=== PATIENT | female | born 1975 | race Caucasian/White ===

== ENCOUNTER 2016-04-13 11:27 | Emergency (ER) | payer OTHER ==
[~2016-04-13] VITALS: Ht 162.6 cm; Wt 65.8 kg
[~2016-04-13 11:27] MED LIST: ALPR1TAB2 PO; BREXPIPRAZOLE; CIPR7.5D2 BC; DICY20TA10 PO; DULO20CA18 PO; LORA-405 PO; LORA0.5T PO; MULT-974 PO; ONDA8TAB13 PO; PRM25T PO; RABE20TA PO; VARE1TAB22 PO; VENL150C PO; VENL37.56 PO; VNL37.5T PO; VNL75CCR PO
[2016-04-13] MEDS ORDERED: CLON0.1T (11:40)
--- NOTE | 2016-04-13 11:42 | ED Cough/URI ---
General Chief Complaint: Cough/Cold/Flu Symptoms Stated Complaint: FEVER COUGH/CHEST CONGESTION SORE THROAT Source: patient Exam Limitations: no limitations History of Present Illness Time seen by provider: 11:41 Initial Comments 4 day history of nonproductive cough, chest congestion, sore throat, rhinorrhea , earache and headache. Chills but no measured fever. Nausea and vomiting. Timing/Duration: getting worse Severity/Quality: dry cough Associated Symptoms: cough, fever/chills, nasal congestion, nasal drainage Allergies and Home Medications Allergies Coded Allergies: No Known Drug Allergies (Unverified , 07/30/09) Home Medications Clonidine HCl 0.1 Mg Tablet #90 (Reported) Constitutional: see HPI chills malaise weakness EENTM: see HPI Respiratory: see HPI cough Cardiovascular: no symptoms reported Genitourinary: no symptoms reported Musculoskeletal: no symptoms reported Skin: no symptoms reported Psychiatric/Neurological: No Symptoms Reported Hematologic/Lymphatic: No Symptoms Reported Past Tnmpood-Bcbbul-Rqcpai Hx Patient Social History Former Smoker/When Quit: Sep 23, 2011 Recent Foreign Travel: No Contact w/Someone Who Travel: No Recent Hopitalizations: Yes (SEVERAL ER VISITS) Immunizations Up To Date Tetanus Booster (TDap): Unknown PED Vaccines UTD: Yes Surgeries HX Surgeries: Yes (ORAL) Surgeries: Section Respiratory Hx Respiratory Disorders: No Cardiovascular Hx Cardiac Disorders: No Neurological Hx Neurological Disorders: No Reproductive System Hx Reproductive Disorders: No Sexually Transmitted Disease: No Female Reproductive Disorders: Denies Genitourinary Hx Genitourinary Disorders: No Gastrointestinal Hx Gastrointestinal Disorders: Yes Gastrointestinal Disorders: Irritable Bowel Musculoskeletal Hx Musculoskeletal Disorders: No Endocrine Hx Endocrine Disorders: No HEENT HX ENT Disorders: No (wears glasses or contacts) Hearing Impairment: Denies Cancer Hx Cancer: No Psychosocial Hx Psychiatric Problems: Yes Behavioral Health Disorders: Anxiety, Depression Integumentary HX Skin/Integumentary Disorder: No Blood Transfusions Hx Blood Disorders: No Family Medical History Significant Family History: Heart Disease, COPD Physical Exam Vital Signs Vital Sign - Last 12Hours 04/13/16 11:32 Temp 97.8 Pulse 82 Resp 18 B/P 128/83 Pulse Ox 99 O2 Delivery Room Air Capillary Refill : General Appearance: WD/WN no apparent distress Eyes: Bilateral Eye EOMI, Bilateral Eye Normal Inspection, Bilateral Eye PERRL HEENT: PERRL/EOMI normal ENT inspection TMs normal pharyngeal erythema Neck: non-tender full range of motionNo lymphadenopathy (R), No lymphadenopathy (L) Respiratory: normal breath sounds no respiratory distress no accessory muscle use Cardiovascular: regular rate, rhythm no murmur Gastrointestinal: normal bowel sounds non tender soft Neurologic/Psychiatric: alert normal mood/affect oriented x 3 Skin: normal color warm/dry Progress/Results/Core Measures Results/Orders Micro Results Microbiology 04/13/16 Influenza Types A,B Antigen (KARSTEN) - Final, Complete My Orders Orders-ABUNDIO RAPHAEL APRN Chest Pa/Lat (2 View) (04/13/16 11:40) Influenza A And B Antigens (04/13/16 11:40) Vital Signs/I&O Vital Sign - Last 12Hours 04/13/16 11:32 Temp 97.8 Pulse 82 Resp 18 B/P 128/83 Pulse Ox 99 O2 Delivery Room Air Departure Impression Impression: Primary Impression: Viral syndrome Disposition: 01 HOME, SELF-CARE Condition: Stable Departure-Patient Inst. Decision time for Depature: 12:05 [address]errals: [facility] (PCP/Family) Primary Care Physician Patient Instructions: VIRAL SYNDROME Add. Discharge Instructions: 1. Tylenol and Motrin for pain 2. Return to ER for any worsening 3. Follow-up with your doctor next week for any concerns All discharge instructions reviewed with patient and/or family. Voiced understanding. Scripts D-Methorphan Hb/P-Epd HCl/Bpm (Bromfed Dm Cough Syrup)118 Ml Syrup5 Ml PO Q6H PRN CONGESTION #120 ML Prov:ABUNDIO RAPHAEL APRN 04/13/16 ABUNDIO RAPHAEL APRN Apr 13, 2016 11:42
[2016-04-13] MEDS ORDERED: D-ME118S33 PO (12:06)
[2016-04-13 12:19] VITALS: BP 128/83
--- NOTE | 2016-04-13 12:31 | Diagnostic Imaging Report ---
INDICATION: Cough and congestion x 4 days. FINDINGS: Two views of the chest demonstrate the lungs to be clear. The heart, mediastinum, pulmonary vascularity, and visualized bony thorax are normal. IMPRESSION: Negative chest. Dictated by: Dictated on workstation # [id number]
== END 2016-04-13 12:19 | disposition home or self-care (01) ==
LOC: EDUNIT# 11:27 → ER 11:29
DX: B34.9 Viral infection, unspecified (principal); R50.9 Fever, unspecified
CPT/HCPCS: 71020; 87804; 99282

== ENCOUNTER 2018-05-18 11:35 | Emergency (ER) | payer SELFPAY ==
[~2018-05-18] VITALS: Ht 162.6 cm; Wt 56.7 kg
[~2018-05-18 11:35] MED LIST changes: +CLON0.1T; +D-ME118S33 PO
[2018-05-18 11:51] VITALS: BP 162/75
[2018-05-18] MEDS ORDERED: NS IV 1000 ML 1,000 ML IV SCH (12:15)
[2018-05-18] MEDS ORDERED: KETOROLAC 30 MG/ML VIAL IVP ONE (12:15)
[2018-05-18] MEDS ORDERED: PROCHLORPERAZINE 10 MG/2ML INJ (COMPAZINE) IV ONE (12:15)
[2018-05-18] MEDS ORDERED: diphenhydrAMINE 50 MG/ML INJ (BENADRYL) IVP ONE (12:15)
--- NOTE | 2018-05-18 12:16 | ED GI ---
General Chief Complaint: Abdominal/GI Problems Stated Complaint: THROWING UP LIGH HEADED MIGRAINE Nursing Triage Note: pt presents with nausea, vomiting, and a headache x 2 days Sepsis Screen: No Definite Risk Source of Information: Patient Exam Limitations: No Limitations History of Present Illness Date Seen by Provider: May 18, 2018 Time Seen by Provider: 12:14 Initial Comments To ER with nausea vomiting and a left-sided occipital headache for 2 days. She reports chills. The headache is to the left side of her neck, base of her skull. Is worsened by turning head either direction. No diarrhea. No abdominal pain. Timing/Duration: 1-2 Days Severity/Quality: Cramping Radiation: No Radiation Activities at Onset: None Associated Symptoms: Fever/Chills, Nausea/Vomiting Allergies and Home Medications Allergies Coded Allergies: No Known Drug Allergies (Unverified , 07/30/09) Home Medications D-Methorphan Hb/P-Epd HCl/Bpm 118 Ml Syrup, 5 ML PO Q6H PRN for CONGESTION Prescribed by: ABUNDIO RAPHAEL on 04/13/16 1206 Patient Home Medication List Home Medication List Reviewed: Yes Review of Systems Review of Systems Constitutional: see HPI EENTM: No Symptoms Reported Respiratory: No Symptoms Reported Cardiovascular: No Symptoms Reported Gastrointestinal: See HPI, Abdominal Pain, Nausea, Vomiting Genitourinary: No Symptoms Reported Musculoskeletal: no symptoms reported Skin: no symptoms reported Psychiatric/Neurological: No Symptoms Reported Endocrine: No Symptoms Reported Hematologic/Lymphatic: No Symptoms Reported Past Bsaffkh-Dovsxv-Wlxepc Hx Patient Social History Alcohol Use: Denies Use Recreational Drug Use: No Smoking Status: Current Everyday Smoker Type Used: Cigarettes Recent Foreign Travel: No Contact w/Someone Who Travel: No Recent Infectious Disease Expo: No Recent Hopitalizations: No Immunizations Up To Date Tetanus Booster (TDap): Unknown PED Vaccines UTD: Yes Date of Influenza Vaccine: Apr 13, 2016 Seasonal Allergies Seasonal Allergies: No Past Medical History Surgeries: Yes Section Respiratory: No Cardiac: No Neurological: No Reproductive Disorders: No Female Reproductive Disorders: Denies Sexually Transmitted Disease: No Genitourinary: No Gastrointestinal: Yes Irritable Bowel Musculoskeletal: No Endocrine: No HEENT: No Hearing Impairment: Denies Cancer: No Psychosocial: Yes Depression Integumentary: No Family Medical History Heart Disease, COPD Physical Exam Vital Signs Vital Signs - First Documented 05/18/18 11:51 Temp 97.5 Pulse 87 Resp 22 B/P (MAP) 162/75 (104) Pulse Ox 98 O2 Delivery Room Air Capillary Refill : Less Than 3 Seconds Height/Weight/BMI Height: 5'4.00" Weight: 125lbs. 12.8oz. 56.538700jl; 24.03 BMI Method:Stated General Appearance: WD/WN, no apparent distress, other (she is actively vomiting on arrival.) HEENT: PERRL/EOMI, normal ENT inspection Neck: non-tender, full range of motion Respiratory: no respiratory distress, no accessory muscle use Gastrointestinal: normal bowel sounds, non tender, soft Extremities: normal range of motion, non-tender Neurologic/Psychiatric: alert, normal mood/affect, oriented x 3 Skin: normal color, warm/dry Progress/Results/Core Measures Results/Orders Lab Results Laboratory Tests Test 05/18/18 12:07 05/18/18 13:57 Range/Units White Blood Count 13.1 H 4.3-11.0 10^3/uL Red Blood Count 4.73 4.35-5.85 10^6/uL Hemoglobin 14.8 11.5-16.0 G/DL Hematocrit 43 35-52 % Mean Corpuscular Volume 92 80-99 FL Mean Corpuscular Hemoglobin 31 25-34 PG Mean Corpuscular Hemoglobin Concent 34 32-36 G/DL Red Cell Distribution Width 13.6 10.0-14.5 % Platelet Count 212 130-400 10^3/uL Mean Platelet Volume 11.8 H 7.4-10.4 FL Neutrophils (%) (Auto) 70 42-75 % Lymphocytes (%) (Auto) 24 12-44 % Monocytes (%) (Auto) 5 0-12 % Eosinophils (%) (Auto) 1 0-10 % Basophils (%) (Auto) 0 0-10 % Neutrophils # (Auto) 9.2 H 1.8-7.8 X 10^3 Lymphocytes # (Auto) 3.1 1.0-4.0 X 10^3 Monocytes # (Auto) 0.7 0.0-1.0 X 10^3 Eosinophils # (Auto) 0.1 0.0-0.3 10^3/uL Basophils # (Auto) 0.0 0.0-0.1 10^3/uL Sodium Level 139 135-145 MMOL/L Potassium Level 3.5 L 3.6-5.0 MMOL/L Chloride Level 107 98-107 MMOL/L Carbon Dioxide Level 21 21-32 MMOL/L Anion Gap 11 5-14 MMOL/L Blood Urea Nitrogen 7 7-18 MG/DL Creatinine 1.06 0.60-1.30 MG/DL Estimat Glomerular Filtration Rate 56 BUN/Creatinine Ratio 7 Glucose Level 106 H 70-105 MG/DL Calcium Level 9.5 8.5-10.1 MG/DL Corrected Calcium 9.2 8.5-10.1 MG/DL Total Bilirubin 0.5 0.1-1.0 MG/DL Aspartate Amino Transf (AST/SGOT) 14 5-34 U/L Alanine Aminotransferase (ALT/SGPT) 9 0-55 U/L Alkaline Phosphatase 57 40-136 U/L Total Protein 7.6 6.4-8.2 GM/DL Albumin 4.4 3.2-4.5 GM/DL Urine Color YELLOW Urine Clarity CLEAR Urine pH 5 5-9 Urine Specific [place] 1.030 H 1.016-1.022 Urine Protein 2+ H NEGATIVE Urine Glucose (UA) NEGATIVE NEGATIVE Urine Ketones 4+ H NEGATIVE Urine Nitrite NEGATIVE NEGATIVE Urine Bilirubin NEGATIVE NEGATIVE Urine Urobilinogen NORMAL NORMAL MG/DL Urine Leukocyte Esterase 1+ H NEGATIVE Urine RBC (Auto) 5+ H NEGATIVE Urine RBC 0-2 /HPF Urine WBC 0-2 /HPF Urine Squamous Epithelial Cells 25-50 H /HPF Urine Crystals NONE /LPF Urine Bacteria MODERATE H /HPF Urine Casts NONE /LPF Urine Mucus MODERATE H /LPF Urine Culture Indicated NO My Orders Orders - ABUNDIO RAPHAEL APRN Cbc With Automated Diff (05/18/18 12:11) Comprehensive Metabolic Panel (05/18/18 12:11) Ua Culture If Indicated (05/18/18 12:11) Iv Heplock-Insert (Order) (05/18/18 12:11) Ct Head Wo (05/18/18 12:11) Ns Iv 1000 Ml (Sodium Chloride 0.9%) (05/18/18 12:15) Diphenhydramine Injection (Benadryl Inje (05/18/18 12:15) Prochlorperazine Injection (Compazine In (05/18/18 12:15) Ketorolac Injection (Toradol Injection) (05/18/18 12:15) Medications Given in ED Current Medications Medications Dose Ordered Sig/Shelton Route Start Time Stop Time Status Last Admin Dose Admin Diphenhydramine HCl 25 mg ONCE ONCE IVP 05/18/18 12:15 05/18/18 12:16 DC 05/18/18 12:19 25 MG Ketorolac Tromethamine 15 mg ONCE ONCE IVP 05/18/18 12:15 05/18/18 12:16 DC 05/18/18 12:20 15 MG Prochlorperazine Edisylate 5 mg ONCE ONCE IV 05/18/18 12:15 05/18/18 12:16 DC 05/18/18 12:21 5 MG Vital Signs/I&O 05/18/18 11:51 Temp 97.5 Pulse 87 Resp 22 B/P (MAP) 162/75 (104) Pulse Ox 98 O2 Delivery Room Air Blood Pressure Mean: 104 Departure Impression Primary Impression: Nausea & vomiting Qualified Codes: R11.2 - Nausea with vomiting, unspecified Additional Impression: Headache Qualified Codes: R51 - Headache Disposition: 01 HOME, SELF-CARE Condition: Stable Departure-Patient Inst. Decision time for Depature: 14:29 Referrals: [facility] (PCP/Family) Primary Care Physician Patient Instructions: Nausea and Vomiting, Adult Add. Discharge Instructions: 1. Return to ER for any concerns 2. Follow-up with your doctor next week 3. All discharge instructions reviewed with patient and/or family. Voiced understanding. Work/School Note: Work Release Form Date Seen in the Emergency Department: May 18, 2018 Return to Work: May 19, 2018 ABUNDIO RAPHAEL APRN May 18, 2018 12:16
[2018-05-18 12:18] LABS: BASOPHILS % (AUTO) 0 % (0-10); EOSINOPHILS # (AUTO) 0.1 10^3/uL (0.0-0.3); EOSINOPHILS % (AUTO) 1 % (0-10); HEMATOCRIT 43 % (35-52); HEMOGLOBIN 14.8 G/DL (11.5-16.0); LYMPHOCYTES # (AUTO) 3.1 X 10^3 (1.0-4.0); LYMPHOCYTES % (AUTO) 24 % (12-44); MEAN CORPUSCULAR HEMOGLOBIN 31 PG (25-34); MEAN CORPUSCULAR HGB CONC 34 G/DL (32-36); MEAN CORPUSCULAR VOLUME 92 FL (80-99); MEAN PLATELET VOLUME 11.8 FL (7.4-10.4); MONOCYTES # (AUTO) 0.7 X 10^3 (0.0-1.0); MONOCYTES % (AUTO) 5 % (0-12); NEUTROPHILS # (AUTO) 9.2 X 10^3 (1.8-7.8); NEUTROPHILS % (AUTO) 70 % (42-75); PLATELET COUNT 212 10^3/uL (130-400); RED CELL DISTRIBUTION WIDTH 13.6 % (10.0-14.5); WHITE BLOOD COUNT 13.1 10^3/uL (4.3-11.0)
[2018-05-18 12:40] LABS: ALBUMIN 4.4 GM/DL (3.2-4.5); BILIRUBIN,TOTAL 0.5 MG/DL (0.1-1.0); CALCIUM 9.5 MG/DL (8.5-10.1); CREATININE SERUM 1.06 MG/DL (0.60-1.30); POTASSIUM 3.5 MMOL/L (3.6-5.0); TOTAL PROTEIN 7.6 GM/DL (6.4-8.2)
--- NOTE | 2018-05-18 13:46 | Diagnostic Imaging Report ---
PROCEDURE: CT head without contrast. TECHNIQUE: Multiple contiguous axial images were obtained through the brain without the use of intravenous contrast. Auto Exposure Controls were utilized during the CT exam to meet ALARA standards for radiation dose reduction. INDICATION: Posterior headache. Correlation is made with prior head CT from 09/15/2015. The ventricles and sulci are within normal limits. No sulcal effacement, midline shift or hemorrhage is detected. Cisterns are patent. Visualized paranasal sinuses are clear. IMPRESSION: No acute intracranial process is detected. Dictated by: Dictated on workstation # [id number]
[2018-05-18 14:13] LABS: BILIRUBIN,URINE NEGATIVE (NEGATIVE); CLARITY,URINE CLEAR; COLOR,URINE YELLOW; GLUCOSE, URINE (UA) NEGATIVE (NEGATIVE); KETONES,URINE 4+ (NEGATIVE); LEUKOCYTE ESTERASE ,URINE 1+ (NEGATIVE); NITRITE,URINE NEGATIVE (NEGATIVE); PH,URINE 5 (5-9); PROTEIN,URINE 2+ (NEGATIVE); UROBILINOGEN,URINE NORMAL (NORMAL)
[2018-05-18 14:22] LABS: BACTERIA,URINE MODERATE /HPF; RBC,URINE 0-2 /HPF; SQUAMOUS EPITHELIAL CELL,UR 25-50 /HPF; WBC,URINE 0-2 /HPF
== END 2018-05-18 14:32 | disposition home or self-care (01) ==
LOC: EDUNIT# 11:35 → ER 11:38
DX: R11.2 Nausea with vomiting, unspecified (principal); R51 Headache; K58.9 Irritable bowel syndrome, unspecified; F32.9 Major depressive disorder, single episode, unspecified; F17.210 Nicotine dependence, cigarettes, uncomplicated; Z98.890 Other specified postprocedural states
CPT/HCPCS: 36415; 70450; 80053; 81000; 85025

== ENCOUNTER 2020-02-28 07:31 | Emergency (ER) | payer OTHER ==
[~2020-02-28] VITALS: Ht 162 cm; Wt 57.0 kg
[~2020-02-28 07:31] MED LIST changes: +CLN.1T; -CLON0.1T; -DULO20CA18 PO; +DULO20CA19 PO
--- NOTE | 2020-02-28 08:25 | ED Respiratory ---
General Stated Complaint: FEVER COUGH, N/V Source: patient Exam Limitations: no limitations History of Present Illness Date Seen by Provider: Feb 28, 2020 Time Seen by Provider: 07:59 Initial Comments Patient presents ER by private conveyance with 3 days progressively worsening cough nausea vomiting and fever T-max of 99.5. She has not taken anything for it. She did go to urgent care and was swabbed 2 days ago for COVID-19 which was negative and yesterday for influenza was negative. They did labs but no x-ray. She has not heard the results of the blood results. She does follow with [facility] for primary care. No history of lung disease. Her last menstrual period was February 03. She is not having dysuria diarrhea loss of sense of taste or smell. No known sick contacts. Allergies and Home Medications Allergies Coded Allergies: No Known Drug Allergies (Unverified , 07/30/09) Home Medications D-Methorphan Hb/P-Epd HCl/Bpm 118 Ml Syrup, 5 ML PO Q6H PRN for CONGESTION Prescribed by: ABUNDIO RAPHAEL on 04/13/16 1206 Ondansetron 4 Mg Tab.rapdis, 4-8 MG PO Q6H PRN for NAUSEA/VOMITING Prescribed by: CIERA RODRIGUEZ on 02/28/20 1051 Patient Home Medication List Home Medication List Reviewed: Yes Review of Systems Review of Systems Constitutional: chills; No diaphoresis; fever (Body aches, T-max 99.5), malaise EENTM: No ear discharge, No ear pain Respiratory: cough; No phlegm; short of breath; No wheezing Cardiovascular: No chest pain, No edema Gastrointestinal: No abdominal pain, No constipation; nausea, vomiting Genitourinary: No discharge, No dysuria Musculoskeletal: No back pain, No joint pain Skin: No pruritus, No rash Psychiatric/Neurological: Denies Anxiety, Denies Depressed All Other Systems Reviewed Negative Unless Noted: Yes Past Joyzdcj-Pgwfba-Dfaaag Hx Patient Social History Alcohol Use: Denies Use Recreational Drug Use: No Smoking Status: Current Everyday Smoker Type Used: Cigarettes Recent Foreign Travel: No Contact w/Someone Who Travel: No Recent Hopitalizations: No Immunizations Up To Date Tetanus Booster (TDap): Unknown PED Vaccines UTD: Yes Date of Influenza Vaccine: Apr 13, 2016 Seasonal Allergies Seasonal Allergies: No Past Medical History Surgeries: Yes Section Respiratory: No Cardiac: No Neurological: No Reproductive Disorders: No Female Reproductive Disorders: Denies Sexually Transmitted Disease: No Genitourinary: No Gastrointestinal: Yes Irritable Bowel Musculoskeletal: No Endocrine: No HEENT: No Hearing Impairment: Denies Cancer: No Psychosocial: Yes Depression Integumentary: No Family Medical History Heart Disease, COPD Physical Exam Vital Signs - First Documented 02/28/20 07:55 Temp 35.0 Pulse 64 Resp 17 B/P (MAP) 111/76 (88) Pulse Ox 98 Capillary Refill : Height: 5'4.00" Weight: 125lbs. 12.8oz. 56.905111xv; 24.03 BMI Method:Stated General Appearance: WD/WN, no apparent distress Eyes: Bilateral Eye Normal Inspection, Bilateral Eye PERRL, Bilateral Eye EOMI HEENT: PERRL/EOMI, pharynx normal Neck: full range of motion, normal inspection Respiratory: lungs clear, normal breath sounds, no accessory muscle use, other (Hyperventilating) Cardiovascular: normal peripheral pulses, regular rate, rhythm Gastrointestinal: normal bowel sounds, non tender, soft Neurologic/Psychiatric: alert, oriented x 3, other (Anxious affect, panicky) Skin: normal color, warm/dry Progress/Results/Core Measures Suspected Sepsis SIRS Temperature: Pulse: Respiratory Rate: Laboratory Tests 02/28/20 08:05: White Blood Count 13.9H Blood Pressure / Mean: Laboratory Tests 02/28/20 08:05: Creatinine 1.13, Platelet Count 179, Total Bilirubin 0.7 Results/Orders Lab Results Laboratory Tests Test 02/28/20 08:05 Range/Units White Blood Count 13.9 H 4.3-11.0 10^3/uL Red Blood Count 4.72 3.80-5.11 10^6/uL Hemoglobin 14.9 11.5-16.0 g/dL Hematocrit 45 35-52 % Mean Corpuscular Volume 95 80-99 fL Mean Corpuscular Hemoglobin 32 25-34 pg Mean Corpuscular Hemoglobin Concent 33 32-36 g/dL Red Cell Distribution Width 12.6 10.0-14.5 % Platelet Count 179 130-400 10^3/uL Mean Platelet Volume 12.3 H 9.0-12.2 fL Immature Granulocyte % (Auto) 0 % Neutrophils (%) (Auto) 79 H 42-75 % Lymphocytes (%) (Auto) 14 12-44 % Monocytes (%) (Auto) 6 0-12 % Eosinophils (%) (Auto) 1 0-10 % Basophils (%) (Auto) 0 0-10 % Neutrophils # (Auto) 10.9 H 1.8-7.8 10^3/uL Lymphocytes # (Auto) 1.9 1.0-4.0 10^3/uL Monocytes # (Auto) 0.8 0.0-1.0 10^3/uL Eosinophils # (Auto) 0.1 0.0-0.3 10^3/uL Basophils # (Auto) 0.1 0.0-0.1 10^3/uL Immature Granulocyte # (Auto) 0.1 0.0-0.1 10^3/uL Sodium Level 139 135-145 MMOL/L Potassium Level 3.6 3.6-5.0 MMOL/L Chloride Level 106 98-107 MMOL/L Carbon Dioxide Level 20 L 21-32 MMOL/L Anion Gap 13 5-14 MMOL/L Blood Urea Nitrogen 7 7-18 MG/DL Creatinine 1.13 0.60-1.30 MG/DL Estimat Glomerular Filtration Rate 52 BUN/Creatinine Ratio 6 Glucose Level 119 H 70-105 MG/DL Calcium Level 9.6 8.5-10.1 MG/DL Corrected Calcium 8.5-10.1 MG/DL Total Bilirubin 0.7 0.1-1.0 MG/DL Aspartate Amino Transf (AST/SGOT) 12 5-34 U/L Alanine Aminotransferase (ALT/SGPT) 10 0-55 U/L Alkaline Phosphatase 55 40-136 U/L Total Protein 8.0 6.4-8.2 GM/DL Albumin 4.6 H 3.2-4.5 GM/DL My Orders Orders - CIERA RODRIGUEZ Ondansetron Injection (Zofran Injectio (02/28/20 08:30) Ketorolac Injection (Toradol Injection) (02/28/20 08:30) Lorazepam Injection (Ativan Injection) (02/28/20 08:30) Cbc With Automated Diff (02/28/20 08:18) Comprehensive Metabolic Panel (02/28/20 08:18) Coronavirus Sars-Cov-2 So 2018 (02/28/20 08:18) Chest 1 View, Ap/Pa Only (02/28/20 08:18) Lactated Ringers (Lr 1000 Ml Iv Solution (02/28/20 08:45) Lactated Ringers (Lr 1000 Ml Iv Solution (02/28/20 08:31) Ondansetron Injection (Zofran Injectio (02/28/20 11:00) Medications Given in ED Current Medications Medications Dose Ordered Sig/Shel[place] Route Start Time Stop Time Status Last Admin Dose Admin Ketorolac Tromethamine 30 mg ONCE ONCE IVP 02/28/20 08:30 02/28/20 08:31 DC 02/28/20 08:34 30 MG Lactated Ringer's 1,000 ml @ 0 mls/hr Q0M ONCE IV 02/28/20 08:45 02/28/20 08:46 DC 02/28/20 08:36 1,000 MLS/HR Lorazepam 1 mg ONCE ONCE IVP 02/28/20 08:30 02/28/20 08:31 DC 02/28/20 08:32 1 MG Ondansetron HCl 4 mg ONCE ONCE IVP 02/28/20 08:30 02/28/20 08:31 DC 02/28/20 08:33 4 MG Vital Signs/I&O 02/28/20 07:55 Temp 35.0 Pulse 64 Resp 17 B/P (MAP) 111/76 (88) Pulse Ox 98 Capillary Refill : Progress Note : Time: 08:42 Progress Note We will reobtain a send out COVID-19 swab as this is more sensitive. We did make 2 attempts to get an ABG to see if she was just having a panic attack and alkalotic but she was not tolerating this so we abandoned this idea after discussing it with her. We will get some labs and chest x-ray to see if there is anything significant however her vital signs are normal and she has 98-100% on room air. We will give her some Zofran for nausea, Ativan IV for her hyperventilation and a liter of fluids. The bicarb is mildly low which would be expected compensatory metabolic mechanism for a theorized respiratory alkalosis. Diagnostic Imaging Diagonstic Imaging: Xray Plain Films/CT/US/NM/MRI: chest (1v) Comments [facility] [place], [place] NAME: ZORAIDA BEAN [facility] REC#: [id number] PT STATUS: REG ER : 1975 PHYSICIAN: CIERA RODRIGUEZ MD ADMIT DATE: 02/28/20/ER Draft Date of Exam:02/28/20 CHEST 1 VIEW, AP/PA ONLY INDICATION: Cough and shortness of air. TIME OF EXAM: 09:58 a.m. COMPARISON: Correlation is made with prior chest 04/13/2016. FINDINGS: The heart size is normal. Lungs are clear. No infiltrates are seen. There is no effusion or pneumothorax. IMPRESSION: No acute cardiopulmonary process is detected. Dictated on workstation # [id number] Dict: 02/28/20 1001 Trans: 02/28/20 1004 [facility] [id number] Interpreted by: BUBBA BLANC MD Electronically signed by: Reviewed: Reviewed by Me Departure Impression Primary Impression: Person under investigation for COVID-19 Additional Impression: Nausea and vomiting Qualified Codes: R11.2 - Nausea with vomiting, unspecified Disposition: 01 HOME, SELF-CARE Condition: Stable Departure-Patient Inst. Decision time for Depature: 10:49 Referrals: [facility] (PCP/Family) Primary Care Physician Patient Instructions: Nausea and Vomiting, Adult (DC), Coronavirus Disease 2019 (COVID-19) Tests Add. Discharge Instructions: Drink plenty of fluids. Zofran 1 or 2 tablets every 6 hours under the tongue as necessary to control na usea. If you develop diarrhea then you should take 2 tablets of loperamide/Imodium. Every 4 hours afterwards you should take another tablet if you are still having loose, watery diarrhea. Tylenol and ibuprofen for body aches. Return to the ER for shortness of breath or other worrisome symptoms. You should receive the results of your Covid swab by phone over the next 2 to 3 days. Scripts Lorazepam (Ativan) 1 Mg Tablet 1 MG SL Q8H PRN for ANXIETY for 7 Days, #14 TAB 0 Refills Prov: CIERA RODRIGUEZ 02/28/20 Ondansetron (Ondansetron Odt) 4 Mg Tab.rapdis 4-8 MG PO Q6H PRN for NAUSEA/VOMITING, #30 TAB 0 Refills Prov: CIERA RODRIGUEZ 02/28/20 Work/School Note: Work Release Form Date Seen in the Emergency Department: Feb 28, 2020 Return to Work: Mar 06, 2020 Restrictions: No Restrictions Other Restrictions Listed Below: Off quarantine when you are 24h symptom free and 10 days from symptom start CIERA RODRIGUEZ Feb 28, 2020 08:25
[2020-02-28 08:30] LABS: ALBUMIN 4.6 GM/DL (3.2-4.5); CHLORIDE 106 MMOL/L (98-107); POTASSIUM 3.6 MMOL/L (3.6-5.0); SODIUM 139 MMOL/L (135-145)
[2020-02-28] MEDS ORDERED: ONDANSETRON 4 MG/2 ML (SDV) Z0FRAN IVP ONE ×2 (08:30→11:00)
[2020-02-28] MEDS ORDERED: LORazepam INJ 2 MG/ML (ATIVAN) VIAL IVP ONE (08:30)
[2020-02-28] MEDS ORDERED: KETOROLAC 30 MG/ML VIAL IVP ONE (08:30)
[2020-02-28 08:31] LABS: CALCIUM 9.6 MG/DL (8.5-10.1)
[2020-02-28] MEDS ORDERED: LACTATED RINGERS 1,000 ML IV ONE ×2 (08:31→08:45)
[2020-02-28 08:33] LABS: BASOPHILS # (AUTO) 0.1 10^3/uL (0.0-0.1); BASOPHILS % (AUTO) 0 % (0-10); EOSINOPHILS # (AUTO) 0.1 10^3/uL (0.0-0.3); EOSINOPHILS % (AUTO) 1 % (0-10); GLUCOSE 119 MG/DL (70-105); HEMATOCRIT 45 % (35-52); HEMOGLOBIN 14.9 g/dL (11.5-16.0); LYMPHOCYTES # (AUTO) 1.9 10^3/uL (1.0-4.0); LYMPHOCYTES % (AUTO) 14 % (12-44); MEAN CORPUSCULAR HEMOGLOBIN 32 pg (25-34); MEAN CORPUSCULAR HGB CONC 33 g/dL (32-36); MEAN CORPUSCULAR VOLUME 95 fL (80-99); MEAN PLATELET VOLUME 12.3 fL (9.0-12.2); MONOCYTES # (AUTO) 0.8 10^3/uL (0.0-1.0); MONOCYTES % (AUTO) 6 % (0-12); NEUTROPHILS # (AUTO) 10.9 10^3/uL (1.8-7.8); NEUTROPHILS % (AUTO) 79 % (42-75); PLATELET COUNT 179 10^3/uL (130-400); WHITE BLOOD COUNT 13.9 10^3/uL (4.3-11.0)
[2020-02-28 08:34] LABS: CARBON DIOXIDE 20 MMOL/L (21-32)
[2020-02-28 08:35] LABS: BILIRUBIN,TOTAL 0.7 MG/DL (0.1-1.0)
[2020-02-28 08:36] LABS: ALKALINE PHOSPHATASE 55 U/L (40-136); CREATININE SERUM 1.13 MG/DL (0.60-1.30); GFR ESTIMATED 52
[2020-02-28 08:38] LABS: BUN/CREATININE RATIO 6
[2020-02-28 08:39] LABS: ALANINE AMINOTRANSFERASE 10 U/L (0-55)
--- NOTE | 2020-02-28 10:05 | Diagnostic Imaging Report ---
INDICATION: Cough and shortness of air. TIME OF EXAM: 09:58 a.m. COMPARISON: Correlation is made with prior chest 04/13/2016. FINDINGS: The heart size is normal. Lungs are clear. No infiltrates are seen. There is no effusion or pneumothorax. IMPRESSION: No acute cardiopulmonary process is detected. Dictated by: Dictated on workstation # [id number]
[2020-02-28] MEDS ORDERED: ONDA4TAB11 PO ×2 (10:51→11:03)
[2020-02-28] MEDS ORDERED: LORA-405 SL (11:03)
[2020-02-28 11:16] VITALS: BP 115/72
== END 2020-02-28 11:16 | disposition home or self-care (01) ==
LOC: EDUNIT# 07:31 → ER 07:35
DX: R11.2 Nausea with vomiting, unspecified (principal); F41.9 Anxiety disorder, unspecified; F17.210 Nicotine dependence, cigarettes, uncomplicated; Z20.828 Contact with and (suspected) exposure to other viral communicable diseases; Z82.49 Family history of ischemic heart disease and other diseases of the circulatory system
CPT/HCPCS: 71045; 80053; 85025; 99284; U0002; 36415; 87635

== ENCOUNTER 2021-09-16 17:47 | Emergency (ER) | payer SELFPAY ==
[~2021-09-16] VITALS: Ht 162.6 cm; Wt 55.8 kg
[~2021-09-16 17:47] MED LIST changes: +LORA-405 SL; +ONDA4TAB11 PO
[2021-09-16] MEDS ORDERED: fentaNYL INJ 100 MCG/2 ML AMP IVP STA (18:02)
[2021-09-16] MEDS ORDERED: NS IV 1000 ML 1,000 ML IV STA (18:02)
--- NOTE | 2021-09-16 18:05 | ED Abdominal Pain ---
General Chief Complaint: Abdominal/GI Problems Stated Complaint: STOMACH PAIN Source of Information: Patient Exam Limitations: No Limitations History of Present Illness Date Seen by Provider: Sep 16, 2021 Time Seen by Provider: 18:04 Initial Comments Patient is a 46-year-old female presents ED with abdominal pain. Pain is described as crampy started 2 days ago. Pain is diffuse but appears to be worse to her left lower quadrant. She states she has had at least 10 episodes of vomiting without any hematemesis or bile. She states she has been constipated with last bowel movement 2 days ago. She took Ex-Lax and MiraLAX without much improvement. Last menstrual cycle 31 days ago. Was seen at the clinic had nega tive , negative urinalysis and negative for COVID and flu. History of C-sections. Frequent urination without dysuria. No current vaginal bleeding. Denies fever, chills, chest pain, shortness of breath, cough, headache, visual changes, sore throat. Patient was given Zofran at the clinic. Denies take anything for pain. Allergies and Home Medications Allergies Coded Allergies: No Known Drug Allergies (Unverified , 07/30/09) Patient Home Medication List Home Medication List Reviewed: Yes Clonidine HCl (Clonidine HCl) 0.1 Mg Tablet, (Reported) Entered as Reported by: SERGE FARIAS on 04/13/16 1140 D-Methorphan Hb/P-Epd HCl/Bpm (Bromfed Dm Cough Syrup) 118 Ml Syrup, 5 ML PO Q6H PRN for CONGESTION Prescribed by: ABUNDIO RAPHAEL on 04/13/16 1206 Hydrocodone/Acetaminophen (Hydrocodone-Acetamin 5-325 mg) 5 Mg-325 Mg Tablet, 1 TAB PO Q4H PRN for PAIN-MODERATE (5-7) Prescribed by: JESSICA RUBI on 09/16/21 191 Lorazepam (Ativan) 1 Mg Tablet, 1 MG SL Q8H PRN for ANXIETY Prescribed by: CIERA RODRIGUEZ on 02/28/20 110 Ondansetron (Ondansetron Odt) 4 Mg Tab.rapdis, 4-8 MG PO Q6H PRN for NAUSEA/VOMITING Prescribed by: CIERA RODRIGUEZ on 02/28/20 1103 Review of Systems Review of Systems Constitutional: No chills, No diaphoresis, No malaise, No weakness EENTM: No Double Vision, No Eye Pain, No Mouth Pain, No Mouth Swelling Respiratory: Denies Cough, Denies Orthopnea Cardiovascular: Denies Chest Pain, Denies Edema Gastrointestinal: Abdominal Pain, Constipated; Denies Diarrhea; Nausea, Vomiting Genitourinary: Denies Burning; Frequency Musculoskeletal: No back pain, No joint pain Skin: No change in color, No change in hair/nails All Other Systems Reviewed Negative Unless Noted: Yes Past Zvrbjbr-Tsjyva-Nzbvjh Hx Immunizations Up To Date Tetanus Booster (TDap): Unknown PED Vaccines UTD: Yes Seasonal Allergies Seasonal Allergies: No Past Medical History Surgeries: Yes Section Respiratory: No Cardiac: No Neurological: No Reproductive Disorders: No Female Reproductive Disorders: Denies Sexually Transmitted Disease: No Genitourinary: No Gastrointestinal: Yes Irritable Bowel Musculoskeletal: No Endocrine: No HEENT: No Hearing Impairment: Denies Cancer: No Psychosocial: Yes Depression Integumentary: No Blood Disorders: No Family Medical History Heart Disease, COPD Physical Exam Vital Signs Vital Signs - First Documented 09/16/21 17:52 Temp 36.8 Pulse 70 Resp 16 B/P (MAP) 131/82 (98) Pulse Ox 99 O2 Delivery Room Air Capillary Refill : Height/Weight/BMI Height: 5'4.00" Weight: 125lbs. 12.8oz. 56.121945dg; 21.00 BMI Method:Stated General Appearance: WD/WN, no apparent distress HEENT: PERRL/EOMI, normal ENT inspection, TMs normal, pharynx normal Neck: non-tender, full range of motion, supple Respiratory: chest non-tender, lungs clear, normal breath sounds, no respiratory distress, no accessory muscle use Cardiovascular: regular rate, rhythm, no edema, no gallop, no JVD, no murmur Gastrointestinal: normal bowel sounds, soft, no organomegaly, tenderness (Left lower quadrant, left upper quadrant, right-sided abdominal tenderness .normal bowel sounds without) Extremities: normal range of motion, non-tender, normal inspection, no pedal edema, no calf tenderness Back: normal inspection, no CVA tenderness, no vertebral tenderness Neurologic/Psychiatric: bus person II-XII nml as tested, no motor/sensory deficits, alert, normal mood/affect, oriented x 3 Skin: normal color, warm/dry Progress/Results/Core Measures Results/Orders Lab Results Laboratory Tests Test 09/16/21 17:57 09/16/21 18:10 Range/Units White Blood Count 12.0 H 4.3-11.0 10^3/uL Red Blood Count 4.87 3.80-5.11 10^6/uL Hemoglobin 15.4 11.5-16.0 g/dL Hematocrit 45 35-52 % Mean Corpuscular Volume 93 80-99 fL Mean Corpuscular Hemoglobin 32 25-34 pg Mean Corpuscular Hemoglobin Concent 34 32-36 g/dL Red Cell Distribution Width 13.2 10.0-14.5 % Platelet Count 176 130-400 10^3/uL Mean Platelet Volume 12.3 H 9.0-12.2 fL Immature Granulocyte % (Auto) 0 % Neutrophils (%) (Auto) 64 42-75 % Lymphocytes (%) (Auto) 27 12-44 % Monocytes (%) (Auto) 8 0-12 % Eosinophils (%) (Auto) 1 0-10 % Basophils (%) (Auto) 1 0-10 % Neutrophils # (Auto) 7.7 1.8-7.8 10^3/uL Lymphocytes # (Auto) 3.2 1.0-4.0 10^3/uL Monocytes # (Auto) 0.9 0.0-1.0 10^3/uL Eosinophils # (Auto) 0.1 0.0-0.3 10^3/uL Basophils # (Auto) 0.1 0.0-0.1 10^3/uL Immature Granulocyte # (Auto) 0.0 0.0-0.1 10^3/uL Sodium Level 141 135-145 MMOL/L Potassium Level 3.4 L 3.6-5.0 MMOL/L Chloride Level 105 98-107 MMOL/L Carbon Dioxide Level 20 L 21-32 MMOL/L Anion Gap 16 H 5-14 MMOL/L Blood Urea Nitrogen 6 L 7-18 MG/DL Creatinine 0.94 0.60-1.30 MG/DL Estimat Glomerular Filtration Rate 75 BUN/Creatinine Ratio 6 Glucose Level 107 H 70-105 MG/DL Calcium Level 9.8 8.5-10.1 MG/DL Corrected Calcium 9.4 8.5-10.1 MG/DL Total Bilirubin 0.6 0.1-1.0 MG/DL Aspartate Amino Transf (AST/SGOT) 18 5-34 U/L Alanine Aminotransferase (ALT/SGPT) 11 0-55 U/L Alkaline Phosphatase 62 40-136 U/L Total Protein 7.9 6.4-8.2 GM/DL Albumin 4.5 3.2-4.5 GM/DL Lipase 24 8-78 U/L Serum Test, Qualitative NEGATIVE NEGATIVE Urine Color YELLOW Urine Clarity CLEAR Urine pH 5.5 5-9 Urine Specific [place] 1.010 L 1.016-1.022 Urine Protein NEGATIVE NEGATIVE Urine Glucose (UA) NEGATIVE NEGATIVE Urine Ketones TRACE H NEGATIVE Urine Nitrite NEGATIVE NEGATIVE Urine Bilirubin NEGATIVE NEGATIVE Urine Urobilinogen 0.2 < = 1.0 MG/DL Urine Leukocyte Esterase NEGATIVE NEGATIVE Urine RBC (Auto) 3+ H NEGATIVE Urine RBC 0-2 /HPF Urine WBC RARE /HPF Urine Squamous Epithelial Cells 10-25 H /HPF Urine Crystals NONE /LPF Urine Bacteria FEW H /HPF Urine Casts NONE /LPF Urine Mucus NEGATIVE /LPF Urine Culture Indicated NO Urine Test NEGATIVE NEGATIVE My Orders Orders - PILO LIAO Urinalysis (09/16/21 17:49) Hcg,Qualitative Urine (09/16/21 17:49) Cbc With Automated Diff (09/16/21 18:02) Comprehensive Metabolic Panel (09/16/21 18:02) Lipase (09/16/21 18:02) Hcg,Qualitative Serum (09/16/21 18:02) Ct Abdomen/Pelvis W (09/16/21 18:02) Ns Iv 1000 Ml (Sodium Chloride 0.9%) (09/16/21 18:02) Fentanyl Inj (Sublimaze Injection) (09/16/21 18:02) Promethazine Injection (Phenergan Injec (09/16/21 18:15) Medications Given in ED Current Medications Medications Dose Ordered Sig/[place] Route Start Time Stop Time Status Last Admin Dose Admin Iohexol 100 ml ONCE ONCE IV 09/16/21 18:45 09/16/21 18:53 DC 09/16/21 18:45 70 ML Promethazine HCl 25 mg ONCE ONCE IVP 09/16/21 18:15 09/16/21 18:16 DC 09/16/21 18:27 25 MG Sodium Chloride 10 ml NEEDED PRN IV 09/16/21 18:45 09/16/21 18:45 10 ML Vital Signs/I&O 09/16/21 17:52 Temp 36.8 Pulse 70 Resp 16 B/P (MAP) 131/82 (98) Pulse Ox 99 O2 Delivery Room Air Departure Communication (PCP) Patient presents ED with generalized abdominal pain worse to left lower quadrant. Started 2 days ago. Described as cramping. Associated vomiting. Constipated and has been taken laxatives. History of C-sections. Urinalysis positive for hematuria without evidence of or infection. Slight elevated white blood count of 12 otherwise unremarkable lab work. Patient Was given a liter of fluid secondary to the vomiting. Was given dose of Phenergan. Received Zofran at [facility]. Patient was given IV pain medication with improvement of pain. CT abdomen pelvis negative for obstruction, diverticulitis, large ovarian cyst, mass. Discussed all results with patient. She states pain appears to be improving. Last menstrual cycle 31 days ago. May be starting her menstrual cycle which may be associate with hematuria and her pain. Pain appear to be more generalized with diffuse tenderness but worse in the left lower quadrant. She appears much better at this time. Will discharge with few days worth of pain medication. Recommend continue ibuprofen. Has Zofran at the pharmacy. If any worsening pain, fever, not able to eat or drink to return back to ED for further evaluation. Patient agrees with plan of action. Impression Primary Impression: Abdominal pain Disposition: 01 HOME, SELF-CARE Condition: Stable Departure-Patient Inst. Decision time for Depature: 19:09 Referrals: [facility] (PCP/Family) Primary Care Physician Patient Instructions: Abdominal Pain, Adult ED Add. Discharge Instructions: If worsening pain, fever not able to eat or drink to return back to ED for for evaluation. Follow-up with your primary care physician 2 to 3 days for evaluation All discharge instructions reviewed with patient and/or family. Voiced understanding. Scripts Hydrocodone/Acetaminophen (Hydrocodone-Acetamin 5-325 mg) 5 Mg-325 Mg Tablet 1 TAB PO Q4H PRN for PAIN-MODERATE (5-7), #6 TAB Prov: PILO LIAO 09/16/21 PILO LIAO Sep 16, 2021 18:05
[2021-09-16 18:12] LABS: BASOPHILS # (AUTO) 0.1 10^3/uL (0.0-0.1); BASOPHILS % (AUTO) 1 % (0-10); EOSINOPHILS # (AUTO) 0.1 10^3/uL (0.0-0.3); EOSINOPHILS % (AUTO) 1 % (0-10); HEMATOCRIT 45 % (35-52); HEMOGLOBIN 15.4 g/dL (11.5-16.0); LYMPHOCYTES # (AUTO) 3.2 10^3/uL (1.0-4.0); LYMPHOCYTES % (AUTO) 27 % (12-44); MEAN CORPUSCULAR HEMOGLOBIN 32 pg (25-34); MEAN CORPUSCULAR HGB CONC 34 g/dL (32-36); MEAN CORPUSCULAR VOLUME 93 fL (80-99); MEAN PLATELET VOLUME 12.3 fL (9.0-12.2); MONOCYTES # (AUTO) 0.9 10^3/uL (0.0-1.0); MONOCYTES % (AUTO) 8 % (0-12); NEUTROPHILS # (AUTO) 7.7 10^3/uL (1.8-7.8); NEUTROPHILS % (AUTO) 64 % (42-75); PLATELET COUNT 176 10^3/uL (130-400)
[2021-09-16 18:14] LABS: BILIRUBIN,URINE NEGATIVE (NEGATIVE); CLARITY,URINE CLEAR; COLOR,URINE YELLOW; GLUCOSE, URINE (UA) NEGATIVE (NEGATIVE); KETONES,URINE TRACE (NEGATIVE); LEUKOCYTE ESTERASE ,URINE NEGATIVE (NEGATIVE); NITRITE,URINE NEGATIVE (NEGATIVE); PH,URINE 5.5 (5-9); PROTEIN,URINE NEGATIVE (NEGATIVE)
[2021-09-16] MEDS ORDERED: PROMETHAZINE INJ 25 MG/ML (PHENERGAN) AMP IVP ONE (18:15)
[2021-09-16 18:16] LABS: ALBUMIN 4.5 GM/DL (3.2-4.5)
[2021-09-16 18:17] LABS: POTASSIUM 3.4 MMOL/L (3.6-5.0)
[2021-09-16 18:18] LABS: CALCIUM 9.8 MG/DL (8.5-10.1)
[2021-09-16 18:19] LABS: TOTAL PROTEIN 7.9 GM/DL (6.4-8.2)
[2021-09-16 18:21] LABS: BILIRUBIN,TOTAL 0.6 MG/DL (0.1-1.0)
[2021-09-16 18:22] LABS: RBC,URINE 0-2 /HPF
[2021-09-16 18:23] LABS: BACTERIA,URINE FEW /HPF; WBC,URINE RARE /HPF
[2021-09-16 18:23] LABS: CREATININE SERUM 0.94 MG/DL (0.60-1.30)
[2021-09-16] MEDS ORDERED: CATHETER FLUSH 10 ML SYR IV PRN (18:45)
[2021-09-16] MEDS ORDERED: IOHEXOL 350 MG/ML 100 ML (OMNIPAQUE 350) VIAL IV ONE (18:45)
[2021-09-16] MEDS ORDERED: HOLD METFORMIN - RECEIVED CONTRAST 20 ML VIAL IV SCH (18:45)
--- NOTE | 2021-09-16 18:53 | Diagnostic Imaging Report ---
PROCEDURE: CT abdomen and pelvis with contrast. TECHNIQUE: Multiple contiguous axial images were obtained through the abdomen and pelvis after administration of intravenous contrast. Auto Exposure Controls were utilized during the CT exam to meet ALARA standards for radiation dose reduction. All CT scans use one or more of the following dose optimizing techniques: automated exposure control, MA and/or KvP adjustment based on patient size and exam type or iterative reconstruction. INDICATION: Left lower quadrant pain. Compared with abdominal pelvic CT performed in 2013. FINDINGS: There is no hydroureteronephrosis, no acute-appearing urinary tract pathology. There is no findings of focal or generalized colitis or diverticulitis. There is no appendicitis. The uterus, adnexa and urinary bladder appeared nonacute. There is no bowel obstruction. No fecal impaction or abnormal fecal loading. No perienteric or pericolonic edema. No ascites, abscess, hematoma or acute fluid collection. Liver, gallbladder, bile ducts, spleen, adrenals and pancreas all unremarkable. Tiny left lobe cyst chronic. The aorta is atherosclerotic but patent and nonaneurysmal. IMPRESSION: 1. No bowel, biliary or urinary tract obstruction, inflammatory processes or acute-appearing abnormalities. 2. In particular, no findings to explain the presenting complaint of left-sided pain. Dictated by: Dictated on workstation # [id number]
[2021-09-16] MEDS ORDERED: ACHD5005 PO (19:10)
[2021-09-16 19:19] VITALS: BP 131/84
== END 2021-09-16 19:17 | disposition home or self-care (01) ==
LOC: EDUNIT# 17:47 → ER 17:49
DX: R10.12 Left upper quadrant pain (principal); R10.32 Left lower quadrant pain
CPT/HCPCS: 36415; 74177; 80053; 81000; 83690; 84703; 85025

== ENCOUNTER 2021-12-31 07:02 | Emergency (ER) | payer SELFPAY ==
[~2021-12-31] VITALS: Ht 163 cm; Wt 55.8 kg
[~2021-12-31 07:02] MED LIST changes: +ACHD5005 PO
--- NOTE | 2021-12-31 07:18 | ED Cough/URI ---
General Chief Complaint: Cough/Cold/Flu Symptoms Stated Complaint: FLU-LIKE SYMPTOMS Source: patient Exam Limitations: no limitations History of Present Illness Date Seen by Provider: Dec 31, 2021 Time Seen by Provider: 07:10 Initial Comments Patient is a 46-year-old female who presents to the emergency department with 1 week of worsening sore throat, nausea, vomiting, generalized malaise, weakness and dizziness. She was seen at [facility] urgent care on Tuesday of this week and diagnosed with a "virus". She states she was tested for COVID flu and strep and these were negative. She has been taking clhx-xao-olfyxjv medications to alleviate her symptoms without relief. She states she is urinated maybe 4 times in the last 24 hours. She has had headache and body aches. She is COVID vaccinated x2 and 2020. She is a smoker. Her only medication is clonidine for anxiety. 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 Her has had some similar symptoms over the past 24 to 48 hours. She states "low-grade" fever. No discrete abdominal pain. No black or bloody stools. No blood in her vomit. Her cough is nonproductive she is little short of breath. brings up concerns for "mold" in the foundation of the home as they have started remodeling over the last 6 weeks. All other review of systems reviewed and negative except as stated Timing/Duration: week Severity/Quality: dry cough Associated Symptoms: cough, fever/chills, headache, lightheadedness, muscle aches, sore throat, other (vomiting) Allergies and Home Medications Allergies Coded Allergies: No Known Drug Allergies (Unverified , 07/30/09) Patient Home Medication List Home Medication List Reviewed: Yes Clonidine HCl (Clonidine HCl) 0.1 Mg Tablet, (Reported) Entered as Reported by: SERGE FARIAS on 04/13/16 1140 D-Methorphan Hb/P-Epd HCl/Bpm (Bromfed Dm Cough Syrup) 118 Ml Syrup, 5 ML PO Q6H PRN for CONGESTION Prescribed by: ABUNDIO RAPHAEL on 04/13/16 1206 Doxycycline Hyclate (Doxycycline Hyclate) 100 Mg Tablet, 100 MG PO BID Prescribed by: BRADNI VILLAGOMEZ on 12/31/21 0842 Hydrocodone/Acetaminophen (Hydrocodone-Acetamin 5-325 mg) 5 Mg-325 Mg Tablet, 1 TAB PO Q4H PRN for PAIN-MODERATE (5-7) Prescribed by: JESSICA RUBI on 09/16/21 191 Lorazepam (Ativan) 1 Mg Tablet, 1 MG SL Q8H PRN for ANXIETY Prescribed by: CIERA RODRIGUEZ on 02/28/20 1104 Ondansetron (Ondansetron Odt) 4 Mg Tab.rapdis, 4-8 MG PO Q6H PRN for NAUSEA/VOMITING Prescribed by: CIERA RODRIGUEZ on 02/28/20 110 Ondansetron (Ondansetron Odt) 4 Mg Tab.rapdis, 4 MG SL Q8H PRN for NAUSEA/VOMITING Prescribed by: BRANDI VILLAGOMEZ on 12/31/21 0842 Review of Systems Review of Systems Constitutional: see HPI EENTM: throat pain Respiratory: cough Gastrointestinal: diarrhea, nausea, vomiting Genitourinary: no symptoms reported Musculoskeletal: muscle pain (body aches) Skin: no symptoms reported Psychiatric/Neurological: Headache All Other Systems Reviewed Negative Unless Noted: Yes Past Lotyuit-Ppadry-Sjilqf Hx Immunizations Up To Date Tetanus Booster (TDap): Unknown PED Vaccines UTD: Yes First/Initial COVID19 Vaccinat: 2020 Second COVID19 Vaccination Branden: 2020 Seasonal Allergies Seasonal Allergies: No Past Medical History Surgery/Hospitalization HX: ANXIETY C SECT X2 Surgeries: Yes Section Respiratory: No Cardiac: No Neurological: No Reproductive Disorders: No Female Reproductive Disorders: Denies Sexually Transmitted Disease: No Genitourinary: No Gastrointestinal: Yes Irritable Bowel Musculoskeletal: No Endocrine: No HEENT: No Hearing Impairment: Denies Cancer: No Psychosocial: Yes Depression Integumentary: No Blood Disorders: No Family Medical History Heart Disease, COPD Physical Exam Vital Signs - First Documented 12/31/21 07:12 Temp 36.8 Pulse 90 Resp 22 B/P (MAP) 147/97 (114) Pulse Ox 99 O2 Delivery Room Air Capillary Refill : Height: 5'4.00" Weight: 125lbs. 12.8oz. 56.277217fl; 21.00 BMI Method:Stated General Appearance: WD/WN, mild distress, thin Eyes: Bilateral Eye Normal Inspection, Bilateral Eye PERRL, Bilateral Eye EOMI HEENT: PERRL/EOMI, TMs normal, pharyngeal erythema, other (dry oral mucosa) Respiratory: lungs clear, normal breath sounds, no respiratory distress, no accessory muscle use, other (slightly labored breathing) Cardiovascular: regular rate, rhythm Gastrointestinal: soft, tenderness (mild diffuse tenderness no rebound) Extremities: normal range of motion, non-tender, normal inspection, no pedal edema, no calf tenderness, normal capillary refill Neurologic/Psychiatric: alert, normal mood/affect, oriented x 3 Skin: normal color, warm/dry Progress/Results/Core Measures Suspected Sepsis SIRS Temperature: Pulse: Respiratory Rate: Blood Pressure / Mean: Laboratory Tests 12/31/21 07:20: Creatinine 1.03 Results/Orders Lab Results Laboratory Tests Test 12/31/21 07:15 12/31/21 07:20 Range/Units SARS-CoV-2 RNA (RT-PCR) Not Detected Not Detecte Sodium Level 139 135-145 MMOL/L Potassium Level 3.3 L 3.6-5.0 MMOL/L Chloride Level 105 98-107 MMOL/L Carbon Dioxide Level 20 L 21-32 MMOL/L Anion Gap 14 5-14 MMOL/L Blood Urea Nitrogen 9 7-18 MG/DL Creatinine 1.03 0.60-1.30 MG/DL Estimat Glomerular Filtration Rate 67 BUN/Creatinine Ratio 9 Glucose Level 92 70-105 MG/DL Calcium Level 9.7 8.5-10.1 MG/DL My Orders Orders - BRANDI VILLAGOMEZ MD Covid 19 Inhouse Test (12/31/21 07:33) Basic Metabolic Panel (12/31/21 07:33) Isolation Central Supply Req (12/31/21 07:33) Ns Iv 1000 Ml (Sodium Chloride 0.9%) (12/31/21 07:45) Ondansetron Injection (Zofran Injectio (12/31/21 07:45) Ketorolac Injection (Toradol Injection) (12/31/21 07:45) Medications Given in ED Vital Signs/I&O 12/31/21 12/31/21 12/31/21 07:12 07:42 08:56 Temp 36.8 36.8 36.8 Pulse 90 47 Resp 22 18 B/P (MAP) 147/97 (114) 145/83 Pulse Ox 99 99 O2 Delivery Room Air Room Air Capillary Refill : Counseling-Symptomatic: 3-10 Minutes Follow-up with PCP to: Discuss Further Options Departure Impression Primary Impression: Tobacco use Additional Impression: Bronchitis Disposition: 01 HOME, SELF-CARE Condition: Improved Departure-Patient Inst. Decision time for Depature: 08:32 Referrals: [facility] (PCP/Family) Primary Care Physician Patient Instructions: Quitting Smoking ED, VIRAL SYNDROME Add. Discharge Instructions: Drink plenty of fluids to stay well-hydrated. Small frequent meals throughout the day to keep your nutrition up and your immune system working. Take the antibiotics 1 pill twice a day for 7 days. Be sure and finish the entire course. Zofran, 4 mg tablets every 8 hours as needed for nausea. If you get a high fever, worsening shortness of breath, worsening cough or any other emergent, concerning symptoms please come back to the emergency room for reevaluation. Follow-up with [facility] in 1 week Scripts Ondansetron (Ondansetron Odt) 4 Mg Tab.rapdis 4 MG SL Q8H PRN for NAUSEA/VOMITING, #10 TAB Prov: BRANDI VILLAGOMEZ MD 12/31/21 Doxycycline Hyclate (Doxycycline Hyclate) 100 Mg Tablet 100 MG PO BID for 7 Days, #14 TAB Prov: BRANDI VILLAGOMEZ MD 12/31/21 Work/School Note: Work Release Form Date Seen in the Emergency Department: Dec 31, 2021 Return to Work: Jan 04, 2022 Copy Copies To 1: MICHAEL LEYVA KATHRYN M MD Dec 31, 2021 07:18
[2021-12-31] MEDS ORDERED: ONDANSETRON 4 MG/2 ML (SDV) Z0FRAN IVP ONE (07:45)
[2021-12-31] MEDS ORDERED: KETOROLAC 30 MG/ML VIAL IVP ONE (07:45)
[2021-12-31] MEDS ORDERED: NS IV 1000 ML 1,000 ML IV SCH (07:45)
[2021-12-31 07:48] LABS: POTASSIUM 3.3 MMOL/L (3.6-5.0)
[2021-12-31 07:50] LABS: CALCIUM 9.7 MG/DL (8.5-10.1)
[2021-12-31 07:54] LABS: CREATININE SERUM 1.03 MG/DL (0.60-1.30)
[2021-12-31] MEDS ORDERED: DOXY100T2 PO (08:42)
[2021-12-31] MEDS ORDERED: ONDA4TAB11 SL (08:42)
[2021-12-31 08:56] VITALS: BP 145/83
== END 2021-12-31 08:56 | disposition home or self-care (01) ==
LOC: EDUNIT# 07:02 → ER 07:04
DX: J40 Bronchitis, not specified as acute or chronic (principal); Z72.0 Tobacco use; Z20.822 Contact with and (suspected) exposure to COVID-19
CPT/HCPCS: 36415; 80048; 87636; 99283